=== PATIENT | male | born 1980 | race Caucasian/White ===

== ENCOUNTER 2020-03-09 08:45 | Emergency (ER) | payer OTHER ==
[~2020-03-09] VITALS: Ht 182.9 cm; Wt 109.1 kg
[~2020-03-09 08:45] MED LIST: AMOXICILLIN 8751 TAB PO; LIPITOR20 MG PO; LOFIBRA160 MG PO; ZYLOPRIM 300MG300 MG PO
[2020-03-09 08:47] VITALS: TEMP 98.2
[2020-03-09 09:08] LABS: BASO # 0.1 (0.0-0.2); BASO % 1.1 % (0.0-2.0); EOS # 0.1 (0.0-0.7); EOS % 1.6 % (0-4.0); HEMATOCRIT 49.8 % (42.0-52.0); HEMOGLOBIN 17.2 g/dl (13.5-18.0); LYMPH # 2.9 (1.2-3.4); MEAN CELL VOLUME 87 fl (80.0-100.0); MEAN CORPUSCULAR HEMOGLOBIN 30 pg (27.0-31.0); MEAN CORPUSCULAR HGB CONC 35 g/dl (33.0-37.0); MEAN PLATELET VOLUME 9.6 fl (7.4-10.4); MONO # 0.5 (0.1-0.6); MONO % 9.1 % (1.7-9.3); PLATELET COUNT 211 K/mm3 (130-400); RED BLOOD COUNT 5.74 M/mm3 (4.20-5.60); REDCELL DISTRIBUTION WIDTH-CV 11.8 % (11.5-14.5)
[2020-03-09] MEDS ORDERED: ASPIRIN E.C. 8181 MG PO (09:12)
[2020-03-09] MEDS ORDERED: VITAMIN D31000 I1 PO (09:13)
[2020-03-09] MEDS ORDERED: EPA FISH OIL1 SGL PO (09:13)
[2020-03-09] MEDS ORDERED: NAPROSYN 2250 MG/TAB PO (09:14)
[2020-03-09] MEDS ORDERED: ZESTORETIC 12.51 TAB PO (09:14)
[2020-03-09 09:17] LABS: ALANINE AMINOTRANSFERASE 175 U/L (4-49); ALBUMIN 4.6 gm/dL (3.5-5.0); ALKALINE PHOSPHATASE 43 U/L (50-136); ANION GAP 9 mmol/L (7-16); AST,SGOT 67 U/L (15-37); BILIRUBIN,TOTAL 1.5 mg/dL (0.0-1.0); BLOOD UREA NITROGEN 16 mg/dL (9-20); CALCIUM 9.5 mg/dL (8.4-10.2); CARBON DIOXIDE 28 mmol/L (22-30); CHLORIDE 101 mmol/L (98-107); CREATININE, serum 1.14 (0.66-1.25); GLUCOSE 93 mg/dL (74-106); POTASSIUM 4.3 mmol/L (3.4-5.0); SODIUM 138 mmol/L (137-145); TOTAL PROTEIN 7.8 gm/dL (6.4-8.2)
[2020-03-09 09:28] LABS: TROPONIN-I < 0.012 ng/mL (0.000-0.035)
[2020-03-09 14:15] VITALS: BP 109/66; PULSE 67
[2020-03-09] MEDS ORDERED: ZETIA 10MG TAB10 MG PO (15:50)
[2020-03-09] MEDS ORDERED: HYZAAR 50-12.1 UDTAB PO (15:52)
== END 2020-03-09 14:27 | disposition other institution (70) ==
LOC: COL.ER 08:45
PROVIDERS: Nurse Practitioner Primary Care
DX: I20.0 Unstable angina (principal); I10 Essential (primary) hypertension; E78.5 Hyperlipidemia, unspecified; Z90.89 Acquired absence of other organs; Z79.82 Long term (current) use of aspirin

== ENCOUNTER 2020-03-09 10:03 | Day surgery (SDC) | payer OTHER ==
[2020-03-09] VITALS (11 sets, daily range): BP systolic 105–119; BP diastolic 67–80; PULSE 61–78
[~2020-03-09 10:03] MED LIST changes: +ASPIRIN E.C. 8181 MG PO; +EPA FISH OIL1 SGL PO; +NAPROSYN 2250 MG/TAB PO; +VITAMIN D31000 I1 PO; +ZESTORETIC 12.51 TAB PO
--- NOTE | 2020-03-09 14:37 | NUR ---
SEE MERGE DOCUMENTATION FOR MEDICATION ADMINISTRATION TIMES AND INTRA/POST PROCEDURE SEDATION ASSESSMENTS.
[2020-03-09] MEDS ORDERED: ZETIA 10MG TAB10 MG PO (15:50)
--- NOTE | 2020-03-09 15:50 | NUR ---
PT TO EXPRESS FROM ENDOSCOPY NURSE, BS REPORT FROM CLARITZA DEMARCO. PT IS DROWSY, BUT GCS 15, PWD, RESP REG AND UNLABORED. TR BAND IN PLACE. CMS INTACT DISTAL. SR ON MONITOR. CALL LIGHT IN REACH, DINNER ORDERED. WCTM
[2020-03-09] MEDS ORDERED: HYZAAR 50-12.1 UDTAB PO (15:52)
--- NOTE | 2020-03-09 18:15 | NUR ---
pt did bleed after 2 cc air were removed from band at 1750, air was reinstilled with hemostasis. no bleeding after 2 cc were removed at 1815
--- NOTE | 2020-03-09 19:20 | NUR ---
Pt has been ambulatory around the room with steady gait. he has eatedn dinner with no problem. he is escorted to exit via wheelchair at this time.
--- NOTE | 2020-03-09 20:36 | NUR ---
TR band deflated and removed with no problem. site dressed with bandaid, folded 2x2 and coban for mild compression dressing. cms remains intact distal. I have reviewed dc/fu and rx instructions with patient and . they denied any questions.
== END 2020-03-09 19:20 | disposition home or self-care (01) ==
LOC: SDCO 10:03
DX: R07.89 Other chest pain (principal); I10 Essential (primary) hypertension; E78.5 Hyperlipidemia, unspecified; M10.9 Gout, unspecified; E66.9 Obesity, unspecified; E78.1 Pure hyperglyceridemia; E55.9 Vitamin D deficiency, unspecified; Z79.82 Long term (current) use of aspirin; Z88.8 Allergy status to other drugs, medicaments and biological substances; G89.29 Other chronic pain; M54.5 Low back pain
CPT/HCPCS: C1769; C1887; J1644; J2250; J3010; Q9967